=== PATIENT | male | born 1960 | race Caucasian/White ===

== ENCOUNTER 2016-05-01 17:51 | Inpatient (IN) | payer MEDICARE, MEDICAID ==
[~2016-05-01] VITALS: Ht 172.7 cm; Wt 91.2 kg
[~2016-05-01 17:51] MED LIST: ARIC5TAB PO; LEVO50TA51 PO; LISI-360 PO; METO25 PO; MIRTA15 PO; PERC5TAB12 PO; PRIM50TA PO; RISP2TAB2 PO; TRAZ300T2 PO; VENL150T14 PO
[2016-05-01 18:30] VITALS: BP 145/90; PULSE 82; RESP 18; TEMP 97.8; O2SAT 98; O2SAT 99
[2016-05-01] MEDS ORDERED: ACETAMINOPHEN 325 MG TAB PO ONE (19:15)
[2016-05-01] MEDS ORDERED: MECLIZINE HCL 25 MG TAB PO ONE (19:15)
[2016-05-01 19:29] LABS: AUTOMATED NEUTROPHIL # 10.9 TH/MM3 (1.8-7.7); BASOPHIL # 0.2 TH/MM3 (0-0.2); BASOPHIL % 1.3 % (0.0-2.0); EOSINOPHIL # 0.7 TH/MM3 (0-0.4); EOSINOPHIL % 4.3 % (0.0-4.0); HEMATOCRIT 47.7 % (39.0-51.0); HEMO FLAGS DIFF FINAL; LYMPH % 19.6 % (9.0-44.0); LYMPHOCYTE # 3.1 TH/MM3 (1.0-4.8); MEAN CELL VOLUME 86.3 FL (80.0-100.0); MEAN CORPUSCULAR HEMOGLOBIN 29.2 PG (27.0-34.0); MEAN CORPUSCULAR HGB CONC 33.8 % (32.0-36.0); MONO % 5.2 % (0.0-8.0); NEUT % 69.6 % (16.0-70.0); PLATELET COUNT 214 TH/MM3 (150-450); RED BLOOD COUNT 5.53 MIL/MM3 (4.50-5.90); RED CELL DISTRIBUTION WIDTH 13.8 % (11.6-17.2); WHITE BLOOD COUNT 15.6 TH/MM3 (4.0-11.0)
[2016-05-01 19:39] LABS: APTT (PATIENT) 29.9 SEC (24.3-30.1)
[2016-05-01 19:41] LABS: ANION GAP 8 MEQ/L (5-15); AST (GOT) 15 U/L (15-37); BICARBONATE 28.6 MEQ/L (21.0-32.0); BLOOD UREA NITROGEN 5 MG/DL (7-18); CHLORIDE 102 MEQ/L (98-107); GLOMERULAR FILTRATION RATE 58 ML/MIN (>89); POTASSIUM 3.3 MEQ/L (3.5-5.1); SODIUM (NA) 139 MEQ/L (136-145)
[2016-05-01 19:45] LABS: ALKALINE PHOSPHATASE 82 U/L (45-117); ALT (GPT) 23 U/L (12-78); TOTAL BILIRUBIN ADULT 0.5 MG/DL (0.2-1.0)
[2016-05-01 19:46] LABS: CREATINE KINASE 123 U/L (39-308)
[2016-05-01 19:58] LABS: CKMB 0.9 NG/ML (0.5-3.6)
--- NOTE | 2016-05-01 20:03 | RADRPT ---
EXAM DATE/TIME: 05/01/2016 19:43 [facility] COMPARISON: No previous studies available for comparison. INDICATIONS : Syncope and dizziness. RADIATION DOSE: 37.42 CTDIvol (mGy) MEDICAL HISTORY : Cerebrovascular disease. Hypertension. SURGICAL HISTORY : None. ENCOUNTER: Initial ACUITY: 1 day PAIN SCALE: 0/10 LOCATION: cranial TECHNIQUE: Multiple contiguous axial images were obtained of the head. Using automated exposure control and adj ustment of the mA and/or kV according to patient size, radiation dose was kept as low as reasonably a chievable to obtain optimal diagnostic quality images. FINDINGS: There is a 21 x 27 mm focus of increased density posteriorly which is in the region of the distal sag ittal sinus and the right transverse sinus, series 2 image 13. This could represent focal subarachnoi d or subdural blood in between the leaves or adjacent to the falx/tentorium. Thrombus within the sinu s could appear similar. A mass lesion is conceivable but considered less likely. In any event, no sig nificant mass effect or midline shift demonstrated. No other areas of hemorrhage or abnormal attenuat ion demonstrated. There is no evidence of an acute ischemic event. Skull is intact. There is mucoperiosteal thickening of the visualized paranasal sinuses. Mastoid air cells are clear. CONCLUSION: 1. Focal acute subarachnoid or subdural blood versus venous sinus thrombosis. Please see above. MRV w ithout contrast and MRI with and without contrast of the brain recommended. 2. Chronic-appearing sinus disease. Russel Lopez MD on May 01, 2016 at 19:58 Board Certified Radiologist. This report was verified electronically.
[2016-05-01 20:09] VITALS: BP 138/89; PULSE 79; RESP 18; O2SAT 97
[2016-05-01] MEDS ORDERED: LEVO50TA4 PO (20:12)
[2016-05-01] MEDS ORDERED: BUPR100T4 PO (20:12)
[2016-05-01] MEDS ORDERED: MIRT30TA PO (20:12)
[2016-05-01] MEDS ORDERED: TRAZ150T75 PO (20:12)
[2016-05-01] MEDS ORDERED: CLON1TAB PO (20:12)
--- NOTE | 2016-05-01 20:19 | PD ---
HPI Chief Complaint: Syncope/Near-Syncope Time Seen by Provider: 20:15 Travel History International Travel<30 days: No Contact w/Intl Traveler<30days: No Traveled to known affect area: No History of Present Illness HPI 56 year-old male with history of dementia and stroke about 30 years ago without deficits presents to the emergency room for evaluation of syncopal episode. Patient was at [facility] when he fell backwards and struck the back of his head. Witnesses report he looked as though he had gone blank and then collapsed. Upon awaking, patient was brought to the emergency room via ambulance. He reports significant headache localized to the occipital area. Patient reports some dizziness when he leans forward. Denies chest pain, shortness of breath, abdominal pain, extremity pain. Denies any other injuries. He does not take any blood thinners. Patient takes medication for hypothyroidism, depression, anxiety, and sleep. Patient's is with him and states at baseline he has dementia due to alcoholism and has short-term memory loss; this is evident by patient asking the same questions multiple times. He has not drank alcohol for 4 years. He has history of stroke when he was in his 30s but has no deficits from it. PFSH Past Medical History Arthritis: Yes Asthma: No Autoimmune Disease: No Anxiety: Yes Depression: Yes Heart Rhythm Problems: No Cancer: No Cardiac Catheterization: Yes (2008) Cardiovascular Problems: Yes High Cholesterol: No Chemotherapy: No Chest Pain: No Congestive Heart Failure: No COPD: Yes Cerebrovascular Accident: Yes (NO DEFICIT) Coronary Artery Disease: Yes Dementia: Yes (SHORT TERM) Diabetes: No Diminished Hearing: No Endocrine: No Gastrointestinal Disorders: No GERD: No Genitourinary: No Headaches: Yes Hepatitis: No Hiatal Hernia: No Immune Disorder: No Implanted Vascular Access Dvce: No Kidney Stones: No Medical other: Yes (ARTHRITIS, STROKE) Musculoskeletal: Yes Neurologic: Yes Psychiatric: Yes (DEPRESSION) Reproductive: No Respiratory: Yes Immunizations Current: Yes Migraines: No Radiation Therapy: No Renal Failure: No Seizures: No Sleep Apnea: No Thyroid Disease: Yes PNEUMOCCOCAL Vaccine (Year): 2 Past Surgical History Abdominal Surgery: Yes (ABDOMINAL HERNIA REPAIR) AICD: No Arteriovenous Shunt: No Ear Surgery: No Endocrine Surgery: No Eye Surgery: No Genitourinary Surgery: No Gynecologic Surgery: No Insulin Pump: No Joint Replacement: No Neurologic Surgery: No Oral Surgery: No Pacemaker: No Thoracic Surgery: No Other Surgery: Yes (CYST REMOVAL) Social History Alcohol Use: No (SOBER 4 YEARS) Tobacco Use: Yes (1 2 PPD) Substance Use: No Allergies-Medications (Allergen,Severity, Reaction): Coded Allergies: No Known Allergies (Verified , 05/01/16) Reported Meds & Prescriptions Reported Meds & Active Scripts Active Reported Trazodone (Trazodone HCl) 150 Mg Tab 150 Mg PO HS Mirtazapine 30 Mg Tab 30 Mg PO HS Clonazepam 1 Mg Tab 1 Mg PO TID Bupropion HCl 100 Mg Tab 100 Mg PO HS Levothyroxine (Levothyroxine Sodium) 50 Mcg Tab 50 Mcg PO DAILY Review of Systems Except as stated in HPI: all other systems reviewed are Neg Physical Exam Narrative GENERAL: Well-nourished, well-developed male in no acute distress. Afebrile. SKIN: Warm and dry. HEAD: Normocephalic. EYES: No scleral icterus. No injection or drainage. NECK: Supple, trachea midline. No JVD or lymphadenopathy. CARDIOVASCULAR: Regular rate and rhythm without murmurs, gallops, or rubs. RESPIRATORY: Breath sounds equal bilaterally. No accessory muscle use. NEUROLOGICAL: Awake and alert. Cranial nerves II through XII intact. Motor and sensory grossly within normal limits. Five out of 5 muscle strength in all muscle groups. Normal speech. No pronator drift in upper or lower extremities. Data Data Last Documented VS Vital Signs Date Time Temp Pulse Resp B/P Pulse Ox O2 Delivery O2 Flow Rate FiO2 05/01/16 20:09 79 18 138/89 97 Room Air 05/01/16 18:30 97.8 Orders Electrocardiogram (05/01/16 18:51) Complete Blood Count With Diff (05/01/16 18:51) Comprehensive Metabolic Panel (05/01/16 18:51) Iv Access Insert/Monitor (05/01/16 18:51) Troponin I (05/01/16 18:58) Ckmb (Isoenzyme) Profile (05/01/16 18:58) Act Partial Throm Time (Ptt) (05/01/16 18:58) Ct Brain W/O Iv Contrast(Rout) (05/01/16 19:10) Ecg Monitoring (05/01/16 19:10) Oximetry (05/01/16 19:10) Meclizine (Antivert) (05/01/16 19:15) Acetaminophen (Tylenol) (05/01/16 19:15) CKMB (05/01/16 18:58) CKMB% (05/01/16 18:58) Mri Brain W&W/O Contrast (05/01/16 ) Admit Order (Ed Use Only) (05/01/16 20:25) Mrv Brain W/Wo Contrast (05/01/16 ) Labs Laboratory Tests Test 05/01/16 18:58 White Blood Count 15.6 TH/MM3 Red Blood Count 5.53 MIL/MM3 Hemoglobin 16.2 GM/DL Hematocrit 47.7 % Mean Corpuscular Volume 86.3 FL Mean Corpuscular Hemoglobin 29.2 PG Mean Corpuscular Hemoglobin 33.8 % Concent Red Cell Distribution Width 13.8 % Platelet Count 214 TH/MM3 Mean Platelet Volume 8.5 FL Neutrophils (%) (Auto) 69.6 % Lymphocytes (%) (Auto) 19.6 % Monocytes (%) (Auto) 5.2 % Eosinophils (%) (Auto) 4.3 % Basophils (%) (Auto) 1.3 % Neutrophils # (Auto) 10.9 TH/MM3 Lymphocytes # (Auto) 3.1 TH/MM3 Monocytes # (Auto) 0.8 TH/MM3 Eosinophils # (Auto) 0.7 TH/MM3 Basophils # (Auto) 0.2 TH/MM3 CBC Comment DIFF FINAL Differential Comment Activated Partial 29.9 SEC Thromboplast Time Sodium Level 139 MEQ/L Potassium Level 3.3 MEQ/L Chloride Level 102 MEQ/L Carbon Dioxide Level 28.6 MEQ/L Anion Gap 8 MEQ/L Blood Urea Nitrogen 5 MG/DL Creatinine 1.27 MG/DL Estimat Glomerular Filtration 58 ML/MIN Rate Random Glucose 74 MG/DL Calcium Level 9.4 MG/DL Total Bilirubin 0.5 MG/DL Aspartate Amino Transf 15 U/L (AST/SGOT) Alanine Aminotransferase 23 U/L (ALT/SGPT) Alkaline Phosphatase 82 U/L Total Creatine Kinase 123 U/L Creatine Kinase MB 0.9 NG/ML Troponin I LESS THAN 0.02 NG/ML Total Protein 8.4 GM/DL Albumin 4.2 GM/DL MDM Medical Decision Making Medical Screen Exam Complete: Yes Emergency Medical Condition: Yes Medical Record Reviewed: Yes Differential Diagnosis Subarachnoid hemorrhage versus hematoma versus concussion versus syncope Narrative Course 56-year-old male presents to the emergency room for evaluation of sickle episode and headache that occurred just prior to arrival. [facility] striking the back of his head. Headache is localized to that area. Physical exam is reassuring. Vital signs stable. Patient has no focal neurological deficits. Answering questions appropriately. He has baseline dementia and often repeats questions. Denies any other complaints. CBC shows mild leukocytosis. CMP is unremarkable. Troponin is less than 0.02. EKG shows sinus rhythm with a rate of 76, no ST changes; signed off by my attending physician. CT brain reveals a 2.1 x 2.7 centimeter focal acute subarachnoid or subdural bleed. I spoke to the neurosurgeon length control tester , Dr. Bassett, who recommends placing patient in intensive care unit with consult to neurosurgery for bleed and neurology for syncope. Dr. Bassett states patient is likely nonsurgical. I spoke to Dr. New who agrees to accept this patient to his service. Physician Communication Physician Communication I spoke to Dr. Bassett who request MRI with and without contrast, MRV without contrast, consult to neurology for syncope, and admission to ICU. I spoke to Dr. New who agrees to accept patient to his service. Diagnosis Primary Impression: Subarachnoid hemorrhage following injury with loss of consciousness of 30 minutes or less Qualified Code: S06.6X1A - Subarachnoid hemorrhage following injury with loss of consciousness of 30 minutes or less, initial encounter Admitting Information Admitting Physician Requests: Admit Condition: Stable Mami Fisher May 01, 2016 20:19
[2016-05-01] MEDS ORDERED: ACETAMINOPHEN 325 MG TAB PO PRN (20:30)
[2016-05-01] MEDS ORDERED: SODIUM CHLORIDE 0.9% FLUSH 5 ML FLUSH IV FLUSH PRN (20:30)
[2016-05-01] MEDS ORDERED: RESP: ALBUTEROL 2.5 MG/IPRATROPIUM 0.5 MG NEB (PRN) INH (20:30)
[2016-05-01] MEDS ORDERED: MORPHINE SULFATE 4 MG/ML INJ IV PRN (20:30)
[2016-05-01] MEDS ORDERED: CHLORHEXIDINE GLUCONATE 2 % 1 PACK (2 CLOTHS) TOP PRN (20:30)
[2016-05-01] MEDS ORDERED: MISCELLANEOUS NURSING INFORMATION XX SCH (20:30)
--- NOTE | 2016-05-01 20:47 | HHI.HP ---
HPI Service Critical Care Medicine Primary Care Physician Unknown Admission Diagnosis subarachnoid hemorrhage Diagnosis: Travel History International Travel<30 Days: No Contact w/Intl Traveler <30 Da: No Traveled to Known Affected Are: No History of Present Illness 56 year-old male with mild dementia and stroke about 30 years ago without deficits presents to the emergency room for evaluation of syncopal episode. Patient was at [facility] when he fell backwards and struck the back of his head. Witnesses report he looked as though he had gone blank and then collapsed. He cannot recall the event. He reports significant headache localized to the occipital area. Patient admits some dizziness when he leans forward. He does not take any blood thinners. Patient takes medication for hypothyroidism, depression, anxiety, and sleep. Review of Systems Constitutional: DENIES: Diaphoretic episodes, Fatigue, Fever, Weight gain, Weight loss, Chills, Dizziness, Change in appetite, Night Sweats Endocrine: DENIES: Heat/cold intolerance, Polydipsia, Polyuria, Polyphagia Eyes: DENIES: Blurred vision, Diplopia, Eye inflammation, Eye pain, Vision loss , Photosensitivity, Double Vision Ears, nose, mouth, throat: DENIES: Tinnitus, Hearing loss, Vertigo, Nasal discharge, Oral lesions, Throat pain, Hoarseness, Ear Pain, Running Nose, Epistaxis, Sinus Pain, Toothache, Odynophagia Respiratory: DENIES: Apneas, Cough, Snoring, Wheezing, Hemoptysis, Sputum production, Shortness of breath Cardiovascular: DENIES: Chest pain, Palpitations, Syncope, Dyspnea on Exertion , PND, Lower Extremity Edema, Orthopnea, Claudication Gastrointestinal: DENIES: Abdominal pain, Black stools, Bloody stools, Constipation, Diarrhea, Nausea, Vomiting, Difficulty Swallowing, Anorexia Genitourinary: DENIES: Sexual dysfunction, Urinary frequency, Urinary incontinence, Urgency, Hematuria, Dysuria, Nocturia, Penile Discharge, Testicular Pain, Testicular Swelling Musculoskeletal: DENIES: Joint pain, Muscle aches, Stiffness, Joint Swelling, Back pain, Neck pain Integumentary: DENIES: Abnormal pigmentation, Nail changes, Pruritus, Rash Hematologic/lymphatic: DENIES: Bruising, Lymphadenopathy Immunologic/allergic: DENIES: Eczema, Urticaria Past Family Social History Allergies: Coded Allergies: No Known Allergies (Verified , 05/01/16) Past Medical History Arthritis Depression Cardiac Catheterization (2008) COPD Cerebrovascular Accident Coronary Artery Disease Dementia Past Surgical History ABDOMINAL HERNIA REPAIR CYST REMOVAL Reported Medications Trazodone (Trazodone HCl) 150 Mg Tab 150 Mg PO HS Mirtazapine 30 Mg Tab 30 Mg PO HS Clonazepam 1 Mg Tab 1 Mg PO TID Bupropion HCl 100 Mg Tab 100 Mg PO HS Levothyroxine (Levothyroxine Sodium) 50 Mcg Tab 50 Mcg PO DAILY Active Ordered Medications Current Medications Medications (Trade) Dose Ordered Sig/Jose Route PRN Reason Start Time Stop Time Status Last Admin Dose Admin Sodium Chloride (NS 1000 ml Inj) 1,000 ml @ 84 mls/hr [id number] IV 05/01/16 20:30 05/01/16 21:12 IV Flush (NS Flush) 2 ml UNSCH PRN IV FLUSH FLUSH AFTER USING IV ACCESS 05/01/16 20:30 IV Flush (NS Flush) 2 ml BID IV FLUSH 05/01/16 21:00 Acetaminophen (Tylenol) 650 mg Q6H PRN PO PAIN 1-10 AND/OR FEVER >101F 05/01/16 20:30 Acetaminophen/ Hydrocodone Bitart ([place] 5-325 Mg) 1 tab Q4H PRN PO PAIN SCALE 1 TO 5 05/01/16 20:30 Morphine Sulfate (Morphine Inj) 2 mg Q2H PRN IV PAIN SCALE 6 TO 10 05/01/16 20:30 Famotidine (Pepcid Inj) 20 mg Q12HR IV PUSH 05/01/16 21:00 05/01/16 21:13 Docusate Sodium (Colace) 100 mg BID PO 05/01/16 21:00 05/01/16 21:13 Miscellaneous Information 1 [id number] XX 05/01/16 20:30 Chlorhexidine Gluconate (Chlorhexidine 2% Cloth) 3 pack Taper DAILY@04 TOP 05/02/16 04:00 04/28/17 03:59 Chlorhexidine Gluconate (Chlorhexidine 2% Cloth) 3 pack UNSCH PRN TOP HYGIENIC CARE 05/01/16 20:30 Bupropion HCl (Wellbutrin) 100 mg HS PO 05/01/16 21:00 05/01/16 21:12 Clonazepam (KlonoPIN) 1 mg TID PO 05/02/16 09:00 Levothyroxine Sodium (Synthroid) 50 mcg DAILY@06 PO 05/02/16 06:00 Mirtazapine (Remeron) 30 mg HS PO 05/01/16 21:00 05/01/16 21:12 Trazodone HCl (Desyrel) 150 mg HS PO 05/01/16 21:00 05/01/16 21:12 Family History Noncontributory Social History Alcohol Use: No (SOBER 4 YEARS) Tobacco Use: Yes (1 1/2 PPD) Substance Use: No Physical Exam Vital Signs Vital Signs Date Time Temp Pulse Resp B/P Pulse Ox O2 Delivery O2 Flow Rate FiO2 05/01/16 20:09 79 18 138/89 97 Room Air 05/01/16 18:30 99 Room Air 05/01/16 18:30 82 18 99 Room Air 05/01/16 18:30 97.8 82 18 145/90 98 Physical Exam Last [address] 05/01/16 1910 Signed Impressions: Service Date/Time: April 19:43 - CONCLUSION: 1. Focal acute subarachnoid or subdural blood versus venous sinus thrombosis. Please see above. MRV without contrast and MRI with and without contrast of the brain recommended. 2. Chronic-appearing sinus disease. Russel Lopez MD Laboratory Laboratory Tests Test 05/01/16 18:58 White Blood Count 15.6 Red Blood Count 5.53 Hemoglobin 16.2 Hematocrit 47.7 Mean Corpuscular Volume 86.3 Mean Corpuscular Hemoglobin 29.2 Mean Corpuscular Hemoglobin 33.8 Concent Red Cell Distribution Width 13.8 Platelet Count 214 Mean Platelet Volume 8.5 Neutrophils (%) (Auto) 69.6 Lymphocytes (%) (Auto) 19.6 Monocytes (%) (Auto) 5.2 Eosinophils (%) (Auto) 4.3 Basophils (%) (Auto) 1.3 Neutrophils # (Auto) 10.9 Lymphocytes # (Auto) 3.1 Monocytes # (Auto) 0.8 Eosinophils # (Auto) 0.7 Basophils # (Auto) 0.2 CBC Comment DIFF FINAL Differential Comment Activated Partial 29.9 Thromboplast Time Sodium Level 139 Potassium Level 3.3 Chloride Level 102 Carbon Dioxide Level 28.6 Anion Gap 8 Blood Urea Nitrogen 5 Creatinine 1.27 Estimat Glomerular Filtration 58 Rate Random Glucose 74 Calcium Level 9.4 Total Bilirubin 0.5 Aspartate Amino Transf 15 (AST/SGOT) Alanine Aminotransferase 23 (ALT/SGPT) Alkaline Phosphatase 82 Total Creatine Kinase 123 Creatine Kinase MB 0.9 Troponin I LESS THAN 0.02 Total Protein 8.4 Albumin 4.2 Result Diagram: 05/01/16185705/01/161857 Imaging Last [address] 05/01/16 1910 Signed Impressions: Service Date/Time: April 19:43 - CONCLUSION: 1. Focal acute subarachnoid or subdural blood versus venous sinus thrombosis. Please see above. MRV without contrast and MRI with and without contrast of the brain recommended. 2. Chronic-appearing sinus disease. Russel Lopez MD Septic Shock Reassessment Heart: Regular rate and rhythm Lungs: Clear Peripheral Pulses: Bounding Right Radial Bounding Left Radial Assessment and Plan Problem List: (1) Hypertension ICD Code: I10 Status: Acute (2) COPD (chronic obstructive pulmonary disease) ICD Code: J44.9 Status: Acute (3) Intracranial bleeding ICD Code: I62.9 Status: Acute (4) Depression ICD Code: F32.9 Status: Acute (5) Hypothyroid ICD Code: E03.9 Status: Acute Assessment and Plan Intracranial Hemorrhage - admit to ICU - neurochecks Q1H - MRI/MRV to r/o aneurysm, venous sinus thrombosis - no NSGY indicated ' - no seizure prophylaxis indicated per location - Neurology evaluation HTN - goal SBT < 150 - Hydralazine PRN Hypothyroid - Levothyroxine Depression - Mirtazapine - Welbutrine - Trazodone Nutrition - NPO until images completed DVT/GI prophylaxis - TEDs/SCDs/ Pepcid Roger New MD May 01, 2016 20:47
[2016-05-01] MEDS: SODIUM CHLORIDE 0.9% FLUSH 5 ML FLUSH IV FLUSH SCH (21:00)
[2016-05-01] MEDS: SODIUM CHLOR 0.9% 1000 ML INJ 1,000 ML IV SCH (21:12)
[2016-05-01] MEDS: MIRTAZAPINE 15 MG TAB PO SCH (21:12)
[2016-05-01] MEDS: buPROPion HCL 100 MG TAB PO SCH (21:12)
[2016-05-01] MEDS: traZODone HCL 50 MG TAB PO SCH (21:12)
[2016-05-01] MEDS: DOCUSATE SODIUM 100 MG CAP PO SCH (21:13)
[2016-05-01] MEDS: FAMOTIDINE 20 MG/2 ML VIAL IV PUSH SCH (21:13)
[2016-05-01] MEDS ORDERED: GADODIAMIDE PF 287 MG/ML 20 ML VIAL (for RAD MRI) IV ONE (22:24)
--- NOTE | 2016-05-01 22:43 | RADRPT ---
EXAM DATE/TIME: 05/01/2016 21:28 [facility] COMPARISON: MRV BRAIN W/WO CONTRAST, May 01, 2016, 21:28. CT BRAIN W/O CONTRAST, May 01, 2016, 19:43. INDICATIONS : Syncope. SDH. CONTRAST: 20 cc Omniscan (gadodiamide) IV MEDICAL HISTORY : Dementia. Hypothyroidism. SURGICAL HISTORY : Inguinal hernia repair. ENCOUNTER: Initial ACUITY: 1 day PAIN SCORE: 3/10 LOCATION: head TECHNIQUE: Multiplanar, multisequence MRI of the brain was performed both prior to and following the administrat ion of paramagnetic contrast. FINDINGS: CEREBRUM: The ventricles are normal for age. No evidence of midline shift, mass lesion, hemorrhage or acute in farction. No extraaxial fluid collections are seen. The pituitary gland and suprasellar cistern are normal in configuration. WHITE MATTER: Numerous subcentimeter scattered foci of flair signal abnormality seen of the mainly subcortical whit e matter of both cerebral hemispheres. POSTERIOR FOSSA: The cerebellum and brainstem are intact. The 4th ventricle is midline. The cerebellopontine angle is unremarkable. The cerebellar tonsils are normal in position. DIFFUSION IMAGING: No focal areas of restricted diffusion are seen. No evidence of acute infarction. EXTRACRANIAL: The visualized portions of the orbits and paranasal sinuses are unremarkable. POST-CONTRAST: No abnormal areas of parenchymal or dural enhancement. No evidence of blood-brain barrier breakdown. CONCLUSION: 1. No acute intracranial abnormality demonstrated. 2. Chronic, moderate severity and primarily subcortical white matter changes, nonspecific. Russel Lopez MD on May 01, 2016 at 22:40 Board Certified Radiologist. This report was verified electronically.
--- NOTE | 2016-05-01 22:46 | RADRPT ---
EXAM DATE/TIME: 05/01/2016 21:28 COMPARISON: MRI BRAIN W & W/O CONTRAST, May 01, 2016, 21:28. CT BRAIN W/O CONTRAST, May 01, 2016, 19:43 . INDICATIONS : Bleed. CONTRAST: 20 cc Omniscan (gadodiamide) IV MEDICAL HISTORY : Dementia. SURGICAL HISTORY : Inguinal hernia repair. ENCOUNTER: Initial ACUITY: 1 day PAIN SCORE: 3/10 LOCATION: head FINDINGS: Dural sinuses are patent. The right transverse sinus is dominant. There is a very prominent caliber c onfluence of the sagittal sinus and right transverse sinus that accounts for the finding on head CT. CONCLUSION: No venous sinus thrombosis or other acute abnormality. The confluence of the sagittal and right trans verse sinuses is developmentally prominent. Russel Lopez MD on May 01, 2016 at 22:42 Board Certified Radiologist. This report was verified electronically.
[2016-05-01 23:16] VITALS: BP 124/79; PULSE 92; RESP 18; O2SAT 95
[2016-05-02] VITALS (11 sets, daily range): BP systolic 96–141; BP diastolic 51–91; PULSE 62–85; RESP 16–21; TEMP 98.2–98.5; O2SAT 93–95
[2016-05-02] MEDS: CHLORHEXIDINE GLUCONATE 2 % 1 PACK (2 CLOTHS) TOP SCH (04:00)
[2016-05-02 04:06] LABS: AUTOMATED NEUTROPHIL # 5.2 TH/MM3 (1.8-7.7); BASOPHIL # 0.1 TH/MM3 (0-0.2); BASOPHIL % 1.3 % (0.0-2.0); EOSINOPHIL # 0.4 TH/MM3 (0-0.4); EOSINOPHIL % 4.6 % (0.0-4.0); HEMATOCRIT 44.1 % (39.0-51.0); HEMO FLAGS DIFF FINAL; LYMPH % 32.4 % (9.0-44.0); MEAN CELL VOLUME 85.5 FL (80.0-100.0); MEAN CORPUSCULAR HEMOGLOBIN 29.5 PG (27.0-34.0); MEAN CORPUSCULAR HGB CONC 34.5 % (32.0-36.0); MONO % 6.4 % (0.0-8.0); NEUT % 55.3 % (16.0-70.0); PLATELET COUNT 160 TH/MM3 (150-450); RED BLOOD COUNT 5.16 MIL/MM3 (4.50-5.90); RED CELL DISTRIBUTION WIDTH 13.7 % (11.6-17.2); WHITE BLOOD COUNT 9.3 TH/MM3 (4.0-11.0)
[2016-05-02 04:37] LABS: ALKALINE PHOSPHATASE 69 U/L (45-117); ALT (GPT) 19 U/L (12-78); ANION GAP 8 MEQ/L (5-15); AST (GOT) 14 U/L (15-37); BICARBONATE 26.7 MEQ/L (21.0-32.0); BLOOD UREA NITROGEN 6 MG/DL (7-18); CHLORIDE 107 MEQ/L (98-107); GLOMERULAR FILTRATION RATE 69 ML/MIN (>89); MAGNESIUM 1.6 MG/DL (1.5-2.5); POTASSIUM 3.5 MEQ/L (3.5-5.1); SODIUM (NA) 142 MEQ/L (136-145); TOTAL BILIRUBIN ADULT 0.7 MG/DL (0.2-1.0)
[2016-05-02] MEDS: LEVOTHYROXINE SODIUM 50 MCG TAB PO SCH (06:00)
[2016-05-02] MEDS: SODIUM CHLOR 0.9% 1000 ML INJ 1,000 ML IV SCH ×2 (08:25→20:20)
[2016-05-02] MEDS: clonazePAM 1 MG TAB PO SCH ×3 (08:29→17:28)
[2016-05-02] MEDS: FAMOTIDINE 20 MG/2 ML VIAL IV PUSH SCH ×2 (08:29→20:26)
[2016-05-02] MEDS: DOCUSATE SODIUM 100 MG CAP PO SCH ×2 (08:29→20:26)
[2016-05-02] MEDS: SODIUM CHLORIDE 0.9% FLUSH 5 ML FLUSH IV FLUSH SCH ×2 (08:30→21:00)
--- NOTE | 2016-05-02 08:45 | PD.CONS ---
History of Present Illness Service Neurology Consult Requested By nsx Reason for Consult ich Primary Care Physician Unknown History of Present Illness 56 year-old male with mild dementia and stroke about 30 years ago without deficits presents to the emergency room for evaluation of syncopal episode. Patient was at [facility] when he fell backwards and struck the back of his head. Witnesses report he looked as though he had gone blank and then collapsed. He cannot recall the event. He reports significant headache localized to the occipital area. Patient admits some dizziness when he leans forward. not on any blood thinners. bp 145/90. c/o mild posterior headache. ct brain brain showed possible sah/venous thrombosis not verified by mri/mrv brain. he is not sure what happened. he states he has "dementia" and his takes care of him. he is on disability. on multiple psychotropic medications. Review of Systems as above and admit hp Past Family Social History Allergies: Coded Allergies: No Known Allergies (Verified , 05/01/16) Past Medical History Arthritis Depression Cardiac Catheterization (2008) COPD Cerebrovascular Accident Coronary Artery Disease Dementia Past Surgical History ABDOMINAL HERNIA REPAIR CYST REMOVAL Reported Medications Trazodone (Trazodone HCl) 150 Mg Tab 150 Mg PO HS Mirtazapine 30 Mg Tab 30 Mg PO HS Clonazepam 1 Mg Tab 1 Mg PO TID Bupropion HCl 100 Mg Tab 100 Mg PO HS Levothyroxine (Levothyroxine Sodium) 50 Mcg Tab 50 Mcg PO DAILY Family History Noncontributory Social History Alcohol Use: No (SOBER 4 YEARS) Tobacco Use: Yes (1 2 PPD) Substance Use: No Review of Systems All other ROS: ROS reviewed as documented in chart Past Family Social History Allergies: Coded Allergies: No Known Allergies (Verified , 05/01/16) Active Ordered Medications Current Medications Medications (Trade) Dose Ordered Sig/Jose Route Start Time Stop Time Status Last Admin (NS 1000 ml Inj) 1,000 ml @ 84 mls/hr [id number] IV 05/01/16 20:30 05/02/16 08:25 (NS Flush) 2 ml UNSCH PRN IV FLUSH 05/01/16 20:30 (NS Flush) 2 ml BID IV FLUSH 05/01/16 21:00 05/02/16 08:30 (Tylenol) 650 mg Q6H PRN PO 05/01/16 20:30 05/02/16 08:30 ([place] 5-325 Mg) 1 tab Q4H PRN PO 05/01/16 20:30 (Morphine Inj) 2 mg Q2H PRN IV 05/01/16 20:30 (Pepcid Inj) 20 mg Q12HR IV PUSH 05/01/16 21:00 05/02/16 08:29 (Colace) 100 mg BID PO 05/01/16 21:00 05/02/16 08:29 Miscellaneous Information 1 Q361D XX 05/01/16 20:30 05/01/16 20:30 (Chlorhexidine 2% Cloth) 3 pack Taper DAILY@04 TOP 05/02/16 04:00 04/28/17 03:59 (Chlorhexidine 2% Cloth) 3 pack UNSCH PRN TOP 05/01/16 20:30 (Wellbutrin) 100 mg HS PO 05/01/16 21:00 05/01/16 21:12 (KlonoPIN) 1 mg TID PO 05/02/16 09:00 05/02/16 08:29 (Synthroid) 50 mcg DAILY@06 PO 05/02/16 06:00 05/02/16 06:00 (Remeron) 30 mg HS PO 05/01/16 21:00 05/01/16 21:12 (Desyrel) 150 mg HS PO 05/01/16 21:00 05/01/16 21:12 (Pneumovax-23 Inj) 25 mcg ONCE ONCE IM 05/02/16 09:00 05/02/16 09:01 Exam I&O / VS 05/01/16 05/01/16 05/02/16 15:00 23:00 07:00 Intake Total 616 ml Output Total 400 ml Balance 216 ml Intake IV Total 616 ml Output Urine Total 400 ml Vital Signs Date Time Temp Pulse Resp B/P Pulse Ox O2 Delivery O2 Flow Rate FiO2 05/02/16 06:00 70 05/02/16 04:00 62 05/02/16 04:00 98.2 62 18 107/58 93 05/02/16 01:00 98.5 64 21 96/51 93 05/02/16 01:00 64 05/01/16 23:16 92 18 124/79 95 Room Air 05/01/16 20:09 79 18 138/89 97 Room Air 05/01/16 18:30 99 Room Air 05/01/16 18:30 82 18 99 Room Air 05/01/16 18:30 97.8 82 18 145/90 98 General: No acute distress Eye: EOMI Respiratory: Non-labored respirations Cardiology: No murmur Neurologic: Alert, Normal sensory, Normal motor, No focal defects, CN II-XII intact Psychiatric: Cooperative, Appropriate mood & affect Exam Comments ox 2. not to exact year. knows he is at [facility]. pres- "i think Navin is coming in" . folows, able to name objects, poor knowledge of medications/medical hx, calm, pleasant, follows, eomi, ou 3-2mm, face sym, no focal weakness, mild tenderness in high occipital region, no lesion/blood seen, planter flexor Review/Management Diagnosis/Plan: (1) Syncope Plan: mri brain images reviewed- no acute stroke. no ich or venous thrombosis seen posterior chu appears to be superficial and probably related 2/2 head hitting floor recs syncope w/u orthostatics eeg/echo/mra brain tele on multiple psychotropic meds that could cause hypotension- may need to be reduced/removed ok for 5th floor [facility] with tele no driving (2) Depression (3) Dementia (4) Hypertension (5) Hypothyroid Problem Qualifiers (1) Syncope: (2) Depression: (3) Dementia: (4) Hypertension: Qualified Code: I10 - Essential hypertension (5) Hypothyroid: Qualified Code: E03.9 - Acquired hypothyroidism Vikram He MD May 02, 2016 08:45
[2016-05-02] MEDS ORDERED: PNEUMOCOCCAL POLYVALENT INJ 25 MCG/0.5 ML SYR IM ONE (09:00)
--- NOTE | 2016-05-02 09:03 | PD.CONS ---
(John Bassett MD) HPI Consult Requested By Primary Care Physician Unknown (John Bassett MD) Service NRS Consult Requested By Dr. Nowak Reason for Consult Intracranial hemorrhage History of Present Illness Mr. Carlson is a 56-year-old male who presented to [place] ED for a syncope. He reports he fell backwards and hit the back of his head. He denies any seizure like activities, tongue biting, urinary or fecal incontinence. A CT of the head showed an acute subarachnoid bleed at the falx. Mr. Carlson reports of some posterior headaches. He denies nausea, vomiting, focal weakness, paresthesias, vision changes. He denies any history of aneurysms. Neurosurgical evaluation was requested. (Rosita Cortés) Review of Systems Constitutional: DENIES: Fever, Chills Eyes: DENIES: Diplopia, Vision loss Ears, nose, mouth, throat: DENIES: Vertigo Respiratory: DENIES: Cough, Hemoptysis Gastrointestinal: DENIES: Nausea, Vomiting Genitourinary: DENIES: Urinary incontinence Musculoskeletal: DENIES: Back pain, Neck pain Neurologic: COMPLAINS OF: Headache, DENIES: Paresthesias Psychiatric: DENIES: Confusion, Hallucinations (Rosita Cortés) Past Family Social History Allergies: Coded Allergies: No Known Allergies (Verified , 05/01/16) Past Medical History COPD CAD Arthritis CVA Depression Past Surgical History Abdominal hernia repair cardiac catherization Reported Medications Trazodone (Trazodone HCl) 150 Mg Tab 150 Mg PO HS Mirtazapine 30 Mg Tab 30 Mg PO HS Clonazepam 1 Mg Tab 1 Mg PO TID Bupropion HCl 100 Mg Tab 100 Mg PO HS Levothyroxine (Levothyroxine Sodium) 50 Mcg Tab 50 Mcg PO DAILY Active Ordered Medications Current Medications Medications (Trade) Dose Ordered Sig/Jose Route PRN Reason Start Time Stop Time Status Last Admin Dose Admin Sodium Chloride (NS 1000 ml Inj) 1,000 ml @ 84 mls/hr [id number] IV 05/01/16 20:30 05/02/16 08:25 IV Flush (NS Flush) 2 ml UNSCH PRN IV FLUSH FLUSH AFTER USING IV ACCESS 05/01/16 20:30 IV Flush (NS Flush) 2 ml BID IV FLUSH 05/01/16 21:00 05/02/16 08:30 Acetaminophen (Tylenol) 650 mg Q6H PRN PO PAIN 1-10 AND/OR FEVER >101F 05/01/16 20:30 05/02/16 08:30 Acetaminophen/ Hydrocodone Bitart ([place] 5-325 Mg) 1 tab Q4H PRN PO PAIN SCALE 1 TO 5 05/01/16 20:30 05/02/16 10:19 Morphine Sulfate (Morphine Inj) 2 mg Q2H PRN IV PAIN SCALE 6 TO 10 05/01/16 20:30 Famotidine (Pepcid Inj) 20 mg Q12HR IV PUSH 05/01/16 21:00 05/02/16 08:29 Docusate Sodium (Colace) 100 mg BID PO 05/01/16 21:00 05/02/16 08:29 Miscellaneous Information 1 Q361D XX 05/01/16 20:30 05/01/16 20:30 Chlorhexidine Gluconate (Chlorhexidine 2% Cloth) 3 pack Taper DAILY@04 TOP 05/02/16 04:00 04/28/17 03:59 Chlorhexidine Gluconate (Chlorhexidine 2% Cloth) 3 pack UNSCH PRN TOP HYGIENIC CARE 05/01/16 20:30 Bupropion HCl (Wellbutrin) 100 mg HS PO 05/01/16 21:00 05/01/16 21:12 Clonazepam (KlonoPIN) 1 mg TID PO 05/02/16 09:00 05/02/16 12:31 Levothyroxine Sodium (Synthroid) 50 mcg DAILY@06 PO 05/02/16 06:00 05/02/16 06:00 Mirtazapine (Remeron) 30 mg HS PO 05/01/16 21:00 05/01/16 21:12 Trazodone HCl (Desyrel) 150 mg HS PO 05/01/16 21:00 05/01/16 21:12 Nicotine (Habitrol 21 Mg Patch.24 Hr) 1 patch DAILY TD 05/02/16 12:30 05/02/16 12:32 Miscellaneous Information 1 HS TD 05/02/16 21:00 Family History NONCONTRIBUTORY Social History TOBACCO 1/2 PPD, PREVIOUS ETOH USE NONE CURRENTLY, NO ILLICIT DRUG USE (Rosita Cortés) Physical Exam Vital Signs Vital Signs Date Time Temp Pulse Resp B/P Pulse Ox O2 Delivery O2 Flow Rate FiO2 05/02/16 06:00 70 05/02/16 04:00 62 05/02/16 04:00 98.2 62 18 107/58 93 05/02/16 01:00 98.5 64 21 96/51 93 05/02/16 01:00 64 05/01/16 23:16 92 18 124/79 95 Room Air 05/01/16 20:09 79 18 138/89 97 Room Air 05/01/16 18:30 99 Room Air 05/01/16 18:30 82 18 99 Room Air 05/01/16 18:30 97.8 82 18 145/90 98 Physical Exam Mr. Carlson is alert, awake and oriented to time, place and person. Speech is fluent. Cranial nerve examination demonstrates the pupils to be equal, round, and reactive to light. Extra-ocular movements are intact. Facial motor and sensory function are normal and symmetrical. Gross hearing is intact, bilaterally. The uvula is midline and elevates symmetrically with the soft palate. Neck is soft and supple. Muscle strength is 5/5 in all muscle groups of both upper extremities including deltoid, biceps, triceps, brachioradialis and repack room worker. In the lower extremities, strength is 5/5 in both iliopsoas, quadriceps, hamstrings, plantar flexion, dorsiflexion, and extensor hallicus longus. Sensory examination is intact to light touch in both the upper and lower extremities, symmetrically. Deep tendon reflexes are 2+ and symmetrical in the biceps, triceps, and brachioradialis, bilaterally, in the upper extremities. In the lower extremities, the patellar and Achilles are 2+, bilaterally. There is a bilateral plantar flexion response. Hoffmanns sign is negative. Cerebellar examination is intact Laboratory Laboratory Tests Test 05/01/16 05/01/16 05/02/16 18:58 23:45 03:27 White Blood Count 15.6 9.3 Red Blood Count 5.53 5.16 Hemoglobin 16.2 15.2 Hematocrit 47.7 44.1 Mean Corpuscular Volume 86.3 85.5 Mean Corpuscular Hemoglobin 29.2 29.5 Mean Corpuscular Hemoglobin 33.8 34.5 Concent Red Cell Distribution Width 13.8 13.7 Platelet Count 214 160 Mean Platelet Volume 8.5 8.2 Neutrophils (%) (Auto) 69.6 55.3 Lymphocytes (%) (Auto) 19.6 32.4 Monocytes (%) (Auto) 5.2 6.4 Eosinophils (%) (Auto) 4.3 4.6 Basophils (%) (Auto) 1.3 1.3 Neutrophils # (Auto) 10.9 5.2 Lymphocytes # (Auto) 3.1 3.0 Monocytes # (Auto) 0.8 0.6 Eosinophils # (Auto) 0.7 0.4 Basophils # (Auto) 0.2 0.1 CBC Comment DIFF FINAL DIFF FINAL Differential Comment Activated Partial 29.9 Thromboplast Time Sodium Level 139 142 Potassium Level 3.3 3.5 Chloride Level 102 107 Carbon Dioxide Level 28.6 26.7 Anion Gap 8 8 Blood Urea Nitrogen 5 6 Creatinine 1.27 1.10 Estimat Glomerular Filtration 58 69 Rate Random Glucose 74 93 Calcium Level 9.4 8.2 Total Bilirubin 0.5 0.7 Aspartate Amino Transf 15 14 (AST/SGOT) Alanine Aminotransferase 23 19 (ALT/SGPT) Alkaline Phosphatase 82 69 Total Creatine Kinase 123 Creatine Kinase MB 0.9 Troponin I LESS THAN 0.02 Total Protein 8.4 7.0 Albumin 4.2 3.3 Nasal Screen MRSA (PCR) NEGATIVE Phosphorus Level 3.9 Magnesium Level 1.6 (John Bassett MD) Physical Exam Mr. Carlson is alert, awake and oriented to time, place and person. Speech is fluent. Follows commands well. Cranial nerve examination demonstrates the pupils to be equal, round, and reactive to light. Extra-ocular movements are intact. Facial motor and sensory function are normal and symmetrical. Gross hearing is intact, bilaterally. The uvula is midline and elevates symmetrically with the soft palate. Neck is soft and supple. Muscle strength is 5/5 in all muscle groups of both upper extremities including deltoid, biceps, triceps, brachioradialis and repack room worker. In the lower extremities, strength is 5/5 in both iliopsoas, quadriceps, hamstrings, plantar flexion, dorsiflexion, and extensor hallicus longus. Sensory examination is intact to light touch in both the upper and lower extremities, symmetrically. Deep tendon reflexes are 2+ and symmetrical in the biceps, triceps, and brachioradialis, bilaterally, in the upper extremities. In the lower extremities, the patellar and Achilles are 2+, bilaterally. There is a bilateral plantar flexion response. Hoffmanns sign is negative. Cerebellar examination is intact to [id number] test. (Rosita Cortés) Result Diagram: 05/02/16 0327 05/02/16 0327 Imaging Last Impressions Head Magnetic Resonance Angiography 05/02/16 0000 Signed Impressions: Service Date/Time: Monday, May 02, 2016 11:47 - CONCLUSION: Normal MRA. No evidence of stenotic or occlusive disease, aneurysm, vascular malformations or vasculopathy. Juanpablo Brooks MD Head CT 05/01/16 1910 Signed Impressions: Service Date/Time: April 19:43 - CONCLUSION: 1. Focal acute subarachnoid or subdural blood versus venous sinus thrombosis. Please see above. MRV without contrast and MRI with and without contrast of the brain recommended. 2. Chronic-appearing sinus disease. Russel Lopez MD Head/Brain Mag Res Venography 05/01/16 0000 Signed Impressions: Service Date/Time: April 21:28 - CONCLUSION: No venous sinus thrombosis or other acute abnormality. The confluence of the sagittal and right transverse sinuses is developmentally prominent. Russel Lopez MD Brain MRI 05/01/16 0000 Signed Impressions: Service Date/Time: April 21:28 - CONCLUSION: 1. No acute intracranial abnormality demonstrated. 2. Chronic, moderate severity and primarily subcortical white matter changes, nonspecific. Russel Lopez MD (John Bassett MD) Attending Statement Neuro. I have reviewed his clinical and radiological findings. Neuro checks in serial fashion. recommend MRI and MRV brain to rule out vascular disease or thrombosis Syncope. Consult neurology. EEG. carotid duplex, echocardiogram. Holter orthostatic bl;ood pressure assessment Psych. he is on multiple psychotropic medications that could cause hypotension Respiratory. pulmonary toilette, nasotracheal suction, and breathing treatments with nebulizers. PT evaluation Tobbacco. Counseled Nutrition. Oral diet Renal. monitor closely urine output, BUN and creatinine Hypoglucemia. Corrected. Monitor serial Acu checks and SSI as needed in detail ID monitor for signs of infection Protonix for stress ulcer prophylaxis Vahe hose and SCD's for DVT prophylaxis (John Bassett MD) John Bassett MD May 02, 2016 09:03 Rosita Cortés May 02, 2016 15:49
[2016-05-02] MEDS: ACETAMINOPHEN/HYDROcodone 325 MG/5 MG TAB PO PRN ×2 (10:19→20:26)
--- NOTE | 2016-05-02 10:29 | HHI.CCPN ---
Subjective Remarks/Hospital Course 6 year-old male with mild dementia and stroke about 30 years ago without deficits presents to the emergency room for evaluation of syncopal episode. Patient was at [facility] when he fell backwards and struck the back of his head. Witnesses report he looked as though he had gone blank and then collapsed. He cannot recall the event. He reports significant headache localized to the occipital area. Patient admits some dizziness when he leans forward. He does not take any blood thinners. Patient takes medication for hypothyroidism, depression, anxiety, and sleep. 05/02: Remains asymptomatic. For CTA head today. Objective Vital Signs Date Time Temp Pulse Resp B/P Pulse Ox O2 Delivery O2 Flow Rate FiO2 05/02/16 10:00 75 05/02/16 08:00 98.3 17 124/81 93 05/01/16 23:16 Room Air Result Diagram: 05/02/16 0327 05/02/16 0327 Imaging Last [address] 05/01/16 1910 Signed Impressions: Service Date/Time: April 19:43 - CONCLUSION: 1. Focal acute subarachnoid or subdural blood versus venous sinus thrombosis. Please see above. MRV without contrast and MRI with and without contrast of the brain recommended. 2. Chronic-appearing sinus disease. Russel Lopez MD Objective Remarks Last 24 hours Impressions PE: Gen: Alert, cooperative. Head: Minor contusion mid occiput. Neck: Supple, airway widely patent. Lungs: Clear, no wheezes or crackles. Heart: NL S1S2, no JVD. RRR> Abdomen: Soft, benign. Extremities: Warm, well perfused. Neuro: O X 23, M/S grossly normal. A/P Problem List: (1) Hypertension ICD Code: I10 Status: Acute (2) COPD (chronic obstructive pulmonary disease) ICD Code: J44.9 Status: Acute (3) Intracranial bleeding ICD Code: I62.9 Status: Acute (4) Depression ICD Code: F32.9 Status: Acute (5) Hypothyroid ICD Code: E03.9 Status: Acute Assessment and Plan Intracranial Hemorrhage, psot-trauamtic - - neurochecks Q1H - MRI/MRV to r/o aneurysm, venous sinus thrombosis - no seizure prophylaxis indicated per location - Neurology evaluation underway HTN - goal SBT < 150 - Hydralazine PRN Hypothyroid - Levothyroxine Depression - Mirtazapine - Welbutrine - Trazodone Nutrition - NPO until images completed. Reg diet now. DVT/GI prophylaxis - TEDs/SCDs/ Pepcid. Hold chemical DVT px Overall impression: Problem Qualifiers (1) Hypertension: Qualified Code: I10 - Essential hypertension (2) Depression: (3) Hypothyroid: Qualified Code: E03.9 - Acquired hypothyroidism Hamzah Ruiz MD May 02, 2016 10:29
[2016-05-02] MEDS: NICOTINE 21 MG/24 HR PATCH TD SCH (12:32)
--- NOTE | 2016-05-02 12:45 | RADRPT ---
EXAM DATE/TIME: 05/02/2016 11:47 [facility] COMPARISON: MRV BRAIN W/WO CONTRAST, May 01, 2016, 21:28. MRI BRAIN W & W/O CONTRAST, May 01, 2016, 21: 28. INDICATIONS : Stroke. MEDICAL HISTORY : Hypothyroidism. Cerebrovascular disease. Hypertension. Dementia. SURGICAL HISTORY : Inguinal hernia repair. ENCOUNTER: Subsequent ACUITY: 2 day PAIN SCORE: 0/10 LOCATION: cranial Please note a normal MRA of the brain does not entirely exclude the possibility of a small aneurysm, nor the possibility of distal intracranial vessel disease. TECHNIQUE: 3D time of flight MRA was performed. Source images, multiplanar STS MIP, and 3D volume MIP reconstru ctions were reviewed. FINDINGS: There is excellent visualization of the major intracranial arteries out to the second-order branch ve ssels. There is no evidence for aneurysm, vessel truncation or stenosis, and no evidence for vascula r malformation. CONCLUSION: Normal MRA. No evidence of stenotic or occlusive disease, aneurysm, vascular malformations or vasculopathy. Juanpablo Brooks MD on May 02, 2016 at 12:40 Board Certified Radiologist. This report was verified electronically.
[2016-05-02 16:01] LABS: HEMOGLOBIN A1a 0.5 %; HEMOGLOBIN A1b 1.7 %; HEMOGLOBIN LA1C 1.8 %; HEMOGLOBIN P3 3.5 %
--- NOTE | 2016-05-02 16:56 | MG ---
cc: CHRISTOPHER PATEL MD Lab No: [id number] Date: 05/02/2016 Age: 56 Sex: M Race: DATE OF : 1960. HISTORY: 56-year-old with dizzy syncopal episode and pain in the back of his head. DESCRIPTION OF RECORD: Posterior rhythm demonstrates 7 to 9 Hz activity, 20-40 microvolts low amplitude beta in the frontal channels. Good anterior to posterior gradient. Reasonable driving with photic stimulation. Good EEG variability reactivity. Single lead EKG showing sinus rhythm. INTERPRETATION: Normal EEG. Clinical correlation. Christopher Patel MD /ARA /4:41 PM /4:53 PM
[2016-05-02] MEDS: buPROPion HCL 100 MG TAB PO SCH (20:26)
[2016-05-02] MEDS: MIRTAZAPINE 15 MG TAB PO SCH (20:26)
[2016-05-02] MEDS: traZODone HCL 50 MG TAB PO SCH (20:26)
[2016-05-02] MEDS ORDERED: REMOVE OLD NICODERM (NICOTINE) PATCH TD SCH (21:00)
--- NOTE | 2016-05-02 22:49 | EKG ---
Date Performed: 05/01/2016 Time Performed: 18:53:26 PTAGE: 56 years EKG: Sinus rhythm BORDERLINE ECG PREVIOUS TRACING : 07/14/2013 15.28 DOCTOR: Tobias Wright Interpretating Date/Time 05/02/2016 22:45:29
[2016-05-03] VITALS: BP 112/75; PULSE 62; PULSE 69; RESP 16; TEMP 97.9; O2SAT 94
[2016-05-03 02:00] VITALS: PULSE 65
[2016-05-03] MEDS: CHLORHEXIDINE GLUCONATE 2 % 1 PACK (2 CLOTHS) TOP SCH (03:40)
[2016-05-03 04:00] VITALS: BP 115/75; PULSE 68; PULSE 71; RESP 21; TEMP 98.9; O2SAT 93
[2016-05-03] MEDS: LEVOTHYROXINE SODIUM 50 MCG TAB PO SCH (05:18)
[2016-05-03] MEDS: ACETAMINOPHEN/HYDROcodone 325 MG/5 MG TAB PO PRN (05:21)
[2016-05-03 06:00] VITALS: PULSE 71
[2016-05-03 08:00] VITALS: BP 130/80; PULSE 56; RESP 16; TEMP 98.5; O2SAT 97
[2016-05-03] MEDS: SODIUM CHLOR 0.9% 1000 ML INJ 1,000 ML IV SCH (08:15)
[2016-05-03] MEDS: DOCUSATE SODIUM 100 MG CAP PO SCH (08:54)
[2016-05-03] MEDS: FAMOTIDINE 20 MG/2 ML VIAL IV PUSH SCH (08:54)
[2016-05-03] MEDS: SODIUM CHLORIDE 0.9% FLUSH 5 ML FLUSH IV FLUSH SCH (08:54)
[2016-05-03] MEDS: NICOTINE 21 MG/24 HR PATCH TD SCH (08:54)
[2016-05-03] MEDS: clonazePAM 1 MG TAB PO SCH (08:54)
--- NOTE | 2016-05-03 08:58 | HHI.DS ---
Discharge Summary Admission Date May 01, 2016 at 20:27 Admitting Diagnosis subarachnoid hemorrhage Procedures MRA - normal. CT Head - Small post SDH Brief History 56 year-old male with mild dementia and stroke about 30 years ago without deficits presents to the emergency room for evaluation of syncopal episode. Patient was at [facility] when he fell backwards and struck the back of his head. Witnesses report he looked as though he had gone blank and then collapsed. He cannot recall the event. He reports significant headache localized to the occipital area. Patient admits some dizziness when he leans forward. He does not take any blood thinners. Patient takes medication for hypothyroidism, depression, anxiety, and sleep. CBC/BMP: 05/02/16 0327 05/02/16 0327 Significant Findings Laboratory Tests Test 05/01/16 05/02/16 05/02/16 18:58 03:27 10:28 White Blood Count 15.6 TH/MM3 (4.0-11.0) Eosinophils (%) (Auto) 4.3 % (0.0-4.0) 4.6 % (0.0-4.0) Neutrophils # (Auto) 10.9 TH/MM3 (1.8-7.7) Eosinophils # (Auto) 0.7 TH/MM3 (0-0.4) Potassium Level 3.3 MEQ/L (3.5-5.1) Blood Urea Nitrogen 5 MG/DL (7-18) 6 MG/DL (7-18) Estimat Glomerular Filtration 58 ML/MIN (>89) 69 ML/MIN (>89) Rate Troponin I LESS THAN 0.02 NG/ML (0.02-0.05) Total Protein 8.4 GM/DL (6.4-8.2) Calcium Level 8.2 MG/DL (8.5-10.1) Aspartate Amino Transf 14 U/L (15-37) (AST/SGOT) Albumin 3.3 GM/DL (3.4-5.0) C-Reactive Protein 0.86 MG/DL (0.00-0.30) PE at Discharge Alert, O X 3. M/S grossly intact. Speech clear. Hospital Course 6 year-old male with mild dementia and stroke about 30 years ago without deficits presents to the emergency room for evaluation of syncopal episode. Patient was at [facility] when he fell backwards and struck the back of his head. Witnesses report he looked as though he had gone blank and then collapsed. He cannot recall the event. He reports significant headache localized to the occipital area. Patient admits some dizziness when he leans forward. He does not take any blood thinners. Patient takes medication for hypothyroidism, depression, anxiety, and sleep. 05/02: Remains asymptomatic. For CTA head today. Pt Condition on Discharge: Good Discharge Disposition: Discharge Home Discharge Instructions Additional Information Head CT in one week. Follow-up appointment with neurosurgery after 1 week. Hamzah Ruiz MD May 03, 2016 08:58
--- NOTE | 2016-05-03 09:04 | HHI.CCPN ---
Subjective Remarks/Hospital Course 6 year-old male with mild dementia and stroke about 30 years ago without deficits presents to the emergency room for evaluation of syncopal episode. Patient was at [facility] when he fell backwards and struck the back of his head. Witnesses report he looked as though he had gone blank and then collapsed. He cannot recall the event. He reports significant headache localized to the occipital area. Patient admits some dizziness when he leans forward. He does not take any blood thinners. Patient takes medication for hypothyroidism, depression, anxiety, and sleep. 05/02: Remains asymptomatic. For CTA head today. 05/03: Head MRA normal. Objective Vital Signs Date Time Temp Pulse Resp B/P Pulse Ox O2 Delivery O2 Flow Rate FiO2 05/03/16 06:00 71 05/03/16 04:00 98.9 21 115/75 93 05/01/16 23:16 Room Air Intake and Output 05/02/16 05/02/16 05/03/16 08:00 16:00 00:00 Intake Total 616 ml 715 ml 336 ml Output Total 400 ml 400 ml 475 ml Balance 216 ml 315 ml -139 ml Result Diagram: 05/02/16 0327 05/02/16 0327 Imaging Last [address] 05/01/161909 Signed Impressions: Service Date/Time: April 19:43 - CONCLUSION: 1. Focal acute subarachnoid or subdural blood versus venous sinus thrombosis. Please see above. MRV without contrast and MRI with and without contrast of the brain recommended. 2. Chronic-appearing sinus disease. Russel Lopez MD Objective Remarks Last [address] 05/01/161909 Signed Impressions: Service Date/Time: April 19:43 - CONCLUSION: 1. Focal acute subarachnoid or subdural blood versus venous sinus thrombosis. Please see above. MRV without contrast and MRI with and without contrast of the brain recommended. 2. Chronic-appearing sinus disease. Russel Lopez MD PE: Neuro: O X 3, alert, M/S grossly intact. Lungs: Clear, no wheezes or crackles. Heart: RRR, no JVD. Extremities; Warm, well perfused. Procedures MRA - normal. CT Head - Small post SDH A/P Problem List: (1) Hypertension ICD Code: I10 Status: Acute (2) COPD (chronic obstructive pulmonary disease) ICD Code: J44.9 Status: Acute (3) Intracranial bleeding ICD Code: I62.9 Status: Acute (4) Depression ICD Code: F32.9 Status: Acute (5) Hypothyroid ICD Code: E03.9 Status: Acute Assessment and Plan Intracranial Hemorrhage - admit to ICU - neurochecks Q1H - MRI/MRV to r/o aneurysm, venous sinus thrombosis - no NSGY indicated ' - no seizure prophylaxis indicated per location - Neurology evaluation -MRA normal HTN - goal SBT < 150 - Hydralazine PRN Hypothyroid - Levothyroxine Depression - Mirtazapine - Welbutrine - Trazodone Nutrition - NPO until images completed DVT/GI prophylaxis - TEDs/SCDs/ Pepcid Overall: Neuro status normal aside from emotional lability. Needs Head CT after 1 week. F/U with NS. Problem Qualifiers (1) Hypertension: Qualified Code: I10 - Essential hypertension (2) Depression: (3) Hypothyroid: Qualified Code: E03.9 - Acquired hypothyroidism Hamzah Ruiz MD May 03, 2016 09:04
--- NOTE | 2016-05-03 09:42 | HHI.NSPN ---
Subjective History 56 yr old day 2 after fall, small tentorial SDH, now alert with no dizziness and no gait abnormality. EEG and MRA were negative. Vitals . Vital Signs Date Time Temp Pulse Resp B/P Pulse Ox O2 Delivery O2 Flow Rate FiO2 05/03/16 08:00 98.5 56 16 130/80 97 05/03/16 08:00 56 05/03/16 06:00 71 05/03/16 04:00 68 05/03/16 04:00 98.9 71 21 115/75 93 05/03/16 02:00 65 05/03/16 00:00 69 05/03/16 00:00 97.9 62 16 112/75 94 05/02/16 22:00 69 05/02/16 21:26 21 05/02/16 20:00 67 05/02/16 20:00 98.2 73 21 123/74 94 05/02/16 18:00 68 05/02/16 16:00 66 05/02/16 16:00 98.3 66 16 107/79 94 05/02/16 14:00 85 05/02/16 12:00 74 05/02/16 12:00 98.5 74 17 141/91 95 05/02/16 10:00 75 05/02/16 05/02/16 05/03/16 15:00 23:00 07:00 Intake Total 715 ml 336 ml 400 ml Output Total 400 ml 475 ml Balance 315 ml -139 ml 400 ml Physical Exam Head Head: Atraumatic Eyes Eyes: Pupils Equal Neuro Mental Status: Awake, Alert, Oriented x 3 (has beseline dementia) Pupils: Reactive Bilaterally Nohemi Coma Scale Best Eye Openin - Spontaneous Best Verbal: 5 - Oriented Best Motor: 6 - Obeys Gastrointestinal Gastrointestinal: Soft Musculoskeletal Musculoskeletal: Moves all extrem with 5/5 strength (No dysmetria to FTN and heel to croft) Extremities Upper Extremities Deltoid Bicep Tricep HI W. Ext Right Left Lower Extremeties Ilio Quad Plantar Dorsi EHL Right Left Objective Labs Last Impressions Head Magnetic Resonance Angiography 05/02/16 0000 Signed Impressions: Service Date/Time: Monday, May 02, 2016 11:47 - CONCLUSION: Normal MRA. No evidence of stenotic or occlusive disease, aneurysm, vascular malformations or vasculopathy. Juanpablo Brooks MD Head CT 05/01/16 1910 Signed Impressions: Service Date/Time: April 19:43 - CONCLUSION: 1. Focal acute subarachnoid or subdural blood versus venous sinus thrombosis. Please see above. MRV without contrast and MRI with and without contrast of the brain recommended. 2. Chronic-appearing sinus disease. Russel Lopez MD Head/Brain Mag Res Venography 05/01/16 0000 Signed Impressions: Service Date/Time: April 21:28 - CONCLUSION: No venous sinus thrombosis or other acute abnormality. The confluence of the sagittal and right transverse sinuses is developmentally prominent. Russel Lopez MD Brain MRI 05/01/16 0000 Signed Impressions: Service Date/Time: April 21:28 - CONCLUSION: 1. No acute intracranial abnormality demonstrated. 2. Chronic, moderate severity and primarily subcortical white matter changes, nonspecific. Russel Lopez MD Laboratory Tests Test 05/02/16 10:28 Hemoglobin A1c 5.4 % C-Reactive Protein 0.86 MG/DL Vitamin B12 Level 956 PG/ML Thyroid Stimulating Hormone 0.764 uIU/ML 3rd Gen Assessment & Plan Diagnosis: (1) Subarachnoid hemorrhage following injury with loss of consciousness of 30 minutes or less Plan: Syncope work up shows no neurologic problems except for the tentorial acute hemorrhage from the fall. He has no headaches and can be discharged with family with follow up with neurosurgery in 1 week from the [facility]. Critical Care Time (minutes): 10 Pradeep May May 03, 2016 09:42
== END 2016-05-03 09:38 | disposition home or self-care (01) | DRG 87 ==
LOC: NEPC 17:51 → NEDA 20:27 → N03B 23:37
PROVIDERS: ADMIT Internal Medicine Critical Care Medicine; ATTEND Internal Medicine Critical Care Medicine
DX: S06.5X0A Traumatic subdural hemorrhage without loss of consciousness, initial encounter (principal); F03.90 Unspecified dementia, unspecified severity, without behavioral disturbance, psychotic disturbance, mood disturbance, and anxiety; R55 Syncope and collapse; W18.30XA Fall on same level, unspecified, initial encounter; Y92.512 Supermarket, store or market as the place of occurrence of the external cause; J44.9 Chronic obstructive pulmonary disease, unspecified; I10 Essential (primary) hypertension; Z86.73 Personal history of transient ischemic attack (TIA), and cerebral infarction without residual deficits; F32.9 Major depressive disorder, single episode, unspecified; F41.9 Anxiety disorder, unspecified; E03.9 Hypothyroidism, unspecified; F17.210 Nicotine dependence, cigarettes, uncomplicated; M19.90 Unspecified osteoarthritis, unspecified site
CPT/HCPCS: 70450; 70544; 70546; 70553; 80053; 82550; 82552; 82607; 83036; 83735; 84100; 84443; 84484; 85025; 85652; 85730; 86140; 87641; 93005; 95819; A9579; J7030

== ENCOUNTER 2016-05-12 14:07 | Emergency (ER) | payer MEDICARE, MEDICAID ==
[~2016-05-12] VITALS: Ht 177.8 cm; Wt 85.0 kg
[~2016-05-12 14:07] MED LIST changes: -ARIC5TAB PO; +BUPR100T4 PO; +CLON1TAB PO; +LEVO50TA4 PO; -LEVO50TA51 PO; -LISI-360 PO; -METO25 PO; +MIRT30TA PO; -MIRTA15 PO; -PERC5TAB12 PO; -PRIM50TA PO; -RISP2TAB2 PO; +TRAZ150T75 PO; -TRAZ300T2 PO; -VENL150T14 PO
[2016-05-12 14:26] VITALS: BP 123/76; PULSE 78; RESP 14; TEMP 97.7; O2SAT 98
[2016-05-12 14:30] VITALS: BP 123/76; PULSE 75; RESP 14; O2SAT 98
--- NOTE | 2016-05-12 14:30 | PD ---
HPI Chief Complaint: psychiatric evaluation Time Seen by Provider: 14:29 Travel History International Travel<30 days: No Contact w/Intl Traveler<30days: No History of Present Illness HPI Patient brought in by police under Jones act for suicidal ideations. Patient states that he has dementia and is not certain why he is here. Patient denies any homicidal ideations. Patient states he does have thoughts of hurting himself from time to time and his plan was be to use a gun. Patient denies any chest pain, headache, shortness of breath, nausea, vomiting, or abdominal pain. PFSH Past Medical History Arthritis: Yes Asthma: No Autoimmune Disease: No Anxiety: Yes Depression: Yes Heart Rhythm Problems: No Cancer: No Cardiac Catheterization: Yes (2008) Cardiovascular Problems: Yes High Cholesterol: No Chemotherapy: No Chest Pain: No Congestive Heart Failure: No COPD: Yes Cerebrovascular Accident: Yes (NO DEFICIT) Coronary Artery Disease: Yes Dementia: Yes (SHORT TERM) Diabetes: No Diminished Hearing: No Endocrine: No Gastrointestinal Disorders: No GERD: No Genitourinary: No Headaches: Yes Hepatitis: No Hiatal Hernia: No Immune Disorder: No Implanted Vascular Access Dvce: No Kidney Stones: No Musculoskeletal: Yes Neurologic: Yes Psychiatric: Yes (DEPRESSION) Reproductive: No Respiratory: Yes Immunizations Current: Yes Migraines: No Radiation Therapy: No Renal Failure: No Seizures: No Sleep Apnea: No Thyroid Disease: Yes PNEUMOCCOCAL Vaccine (Year): 2 Past Surgical History Abdominal Surgery: Yes (ABDOMINAL HERNIA REPAIR) AICD: No Arteriovenous Shunt: No Ear Surgery: No Endocrine Surgery: No Eye Surgery: No Genitourinary Surgery: No Gynecologic Surgery: No Insulin Pump: No Joint Replacement: No Neurologic Surgery: No Oral Surgery: No Pacemaker: No Thoracic Surgery: No Other Surgery: Yes (CYST REMOVAL) Social History Alcohol Use: No (SOBER 4 YEARS) Tobacco Use: Yes (04/14 PPD) Substance Use: No Allergies-Medications (Allergen,Severity, Reaction): Coded Allergies: No Known Allergies (Verified , 05/12/16) Reported Meds & Prescriptions Reported Meds & Active Scripts Active Reported Trazodone (Trazodone HCl) 150 Mg Tab 150 Mg PO HS Mirtazapine 30 Mg Tab 30 Mg PO HS Clonazepam 1 Mg Tab 1 Mg PO TID Bupropion HCl 100 Mg Tab 100 Mg PO HS Levothyroxine (Levothyroxine Sodium) 50 Mcg Tab 50 Mcg PO DAILY Review of Systems Except as stated in HPI: all other systems reviewed are Neg Physical Exam Narrative GENERAL: Well-developed, overly nourished, in no acute distress, and non-ill appearing. SKIN: Warm and dry. HEAD: Atraumatic. Normocephalic. EYES: Pupils equal and round. EOMI. No scleral icterus. No injection or drainage. ENT: No nasal bleeding or discharge. Mucous membranes pink and moist. NECK: Trachea midline. Supple. No nuclear rigidity. CARDIOVASCULAR: Regular rate and rhythm. No murmur appreciated. RESPIRATORY: No accessory muscle use. No respiratory distress. Clear to auscultation. Breath sounds equal bilaterally. GASTROINTESTINAL: Abdomen soft, non-tender, nondistended. Hepatic and splenic margins not palpable. No pulsatile mass. MUSCULOSKELETAL: No obvious deformities. No clubbing. No cyanosis. No edema. Full range of motion. NEUROLOGICAL: Awake and alert. No obvious cranial nerve deficits. Motor grossly within normal limits. Normal speech. PSYCHIATRIC: Appropriate mood and affect. Data Data Last Documented VS Vital Signs Date Time Temp Pulse Resp B/P Pulse Ox O2 Delivery O2 Flow Rate FiO2 05/12/16 14:30 75 14 123/76 98 Room Air 05/12/16 14:26 97.7 Orders Complete Blood Count With Diff (05/12/16 14:25) Comprehensive Metabolic Panel (05/12/16 14:25) Urinalysis - C+S If Indicated (05/12/16 14:25) Drug Screen, Random Urine (05/12/16 14:25) Alcohol (Ethanol) (05/12/16 14:25) Salicylates (Aspirin) (05/12/16 14:25) Tylenol (Acetaminophen) (05/12/16 14:25) Psych Screen (05/12/16 14:25) Labs Laboratory Tests Test 05/12/16 14:45 White Blood Count 12.7 TH/MM3 Red Blood Count 5.60 MIL/MM3 Hemoglobin 16.2 GM/DL Hematocrit 48.1 % Mean Corpuscular Volume 85.9 FL Mean Corpuscular Hemoglobin 28.9 PG Mean Corpuscular Hemoglobin 33.6 % Concent Red Cell Distribution Width 13.8 % Platelet Count 190 TH/MM3 Mean Platelet Volume 8.4 FL Neutrophils (%) (Auto) 71.3 % Lymphocytes (%) (Auto) 21.9 % Monocytes (%) (Auto) 3.1 % Eosinophils (%) (Auto) 2.5 % Basophils (%) (Auto) 1.2 % Neutrophils # (Auto) 9.1 TH/MM3 Lymphocytes # (Auto) 2.8 TH/MM3 Monocytes # (Auto) 0.4 TH/MM3 Eosinophils # (Auto) 0.3 TH/MM3 Basophils # (Auto) 0.2 TH/MM3 CBC Comment DIFF FINAL Differential Comment Urine Color YELLOW Urine Turbidity CLEAR Urine pH 5.0 Urine Specific [place] 1.011 Urine Protein NEG mg/dL Urine Glucose (UA) NEG mg/dL Urine Ketones NEG mg/dL Urine Occult Blood NEG Urine Nitrite NEG Urine Bilirubin NEG Urine Urobilinogen LESS THAN 2.0 MG/DL Urine Leukocyte Esterase NEG Urine RBC LESS THAN 1 /hpf Urine WBC LESS THAN 1 /hpf Urine Mucus FEW /lpf Microscopic Urinalysis Comment CULT NOT INDICATED Sodium Level 138 MEQ/L Potassium Level 3.9 MEQ/L Chloride Level 106 MEQ/L Carbon Dioxide Level 24.1 MEQ/L Anion Gap 8 MEQ/L Blood Urea Nitrogen 10 MG/DL Creatinine 1.12 MG/DL Estimat Glomerular Filtration 67 ML/MIN Rate Random Glucose 100 MG/DL Calcium Level 8.7 MG/DL Total Bilirubin 0.2 MG/DL Aspartate Amino Transf 16 U/L (AST/SGOT) Alanine Aminotransferase 20 U/L (ALT/SGPT) Alkaline Phosphatase 65 U/L Total Protein 7.8 GM/DL Albumin 3.7 GM/DL Salicylates Level 4.1 MG/DL Urine Opiates Screen NEG Acetaminophen Level LESS THAN 2.0 MCG/ML Urine Barbiturates Screen NEG Urine Amphetamines Screen NEG Urine Benzodiazepines Screen NEG Urine Cocaine Screen NEG Urine Cannabinoids Screen POS Ethyl Alcohol Level 209 MG/DL [facility] Medical Decision Making Medical Screen Exam Complete: Yes Emergency Medical Condition: Yes Differential Diagnosis Homicidal, suicidal, depression, drug induced psychosis, alcohol induced psychosis, other Narrative Course Patient was seen and examined. Labs were obtained and reviewed. Discussed patient with Dr. Nobles, who is in agreement with plan of care and disposition. Patient medically cleared for further treatment and evaluation by psych. Final disposition per psych. Diagnosis Primary Impression: Alcohol intoxication Qualified Code: F10.120 - Alcohol intoxication, uncomplicated Condition: Stable Clayton Rojas May 12, 2016 14:30
[2016-05-12 15:15] LABS: AUTOMATED NEUTROPHIL # 9.1 TH/MM3 (1.8-7.7); BASOPHIL # 0.2 TH/MM3 (0-0.2); BASOPHIL % 1.2 % (0.0-2.0); EOSINOPHIL # 0.3 TH/MM3 (0-0.4); EOSINOPHIL % 2.5 % (0.0-4.0); HEMATOCRIT 48.1 % (39.0-51.0); HEMO FLAGS DIFF FINAL; LYMPH % 21.9 % (9.0-44.0); LYMPHOCYTE # 2.8 TH/MM3 (1.0-4.8); MEAN CELL VOLUME 85.9 FL (80.0-100.0); MEAN CORPUSCULAR HEMOGLOBIN 28.9 PG (27.0-34.0); MEAN CORPUSCULAR HGB CONC 33.6 % (32.0-36.0); MONO % 3.1 % (0.0-8.0); NEUT % 71.3 % (16.0-70.0); PLATELET COUNT 190 TH/MM3 (150-450); RED CELL DISTRIBUTION WIDTH 13.8 % (11.6-17.2); WHITE BLOOD COUNT 12.7 TH/MM3 (4.0-11.0)
[2016-05-12 15:19] LABS: BLOOD, URINE NEG (NEG); COMMENT (UR) CULT NOT INDICATED; CULTURE IF INDICATED CULT NOT INDICATED; GLUCOSE,URINE NEG (NEG); KETONE, URINE NEG (NEG); MUCUS URINE FEW /lpf (OCC); NITRITE,URINE NEG (NEG); URINE COLOR YELLOW (YELLW/STRAW)
[2016-05-12 15:22] LABS: AMPHETAMINE, URINE NEG (NEG); BARBITURATES, URINE NEG (NEG); COCAINE, URINE NEG (NEG)
[2016-05-12 15:44] LABS: ALT (GPT) 20 U/L (12-78); ANION GAP 8 MEQ/L (5-15); AST (GOT) 16 U/L (15-37); BICARBONATE 24.1 MEQ/L (21.0-32.0); BLOOD UREA NITROGEN 10 MG/DL (7-18); CHLORIDE 106 MEQ/L (98-107); GLOMERULAR FILTRATION RATE 67 ML/MIN (>89); POTASSIUM 3.9 MEQ/L (3.5-5.1); SODIUM (NA) 138 MEQ/L (136-145)
[2016-05-12 15:45] LABS: ALKALINE PHOSPHATASE 65 U/L (45-117); TOTAL BILIRUBIN ADULT 0.2 MG/DL (0.2-1.0)
[2016-05-12 15:48] LABS: ACETAMINOPHEN LESS THAN 2.0 MCG/ML (10.0-30.0)
[2016-05-12 20:05] VITALS: BP 100/57; PULSE 18; PULSE 70; RESP 18; O2SAT 93
[2016-05-12 22:00] VITALS: BP 105/66; PULSE 67; RESP 18; O2SAT 97
[2016-05-13 02:12] VITALS: BP 98/65; PULSE 63; RESP 16; O2SAT 99
[2016-05-13 06:44] VITALS: BP 122/76; PULSE 58; RESP 18; TEMP 97.4; O2SAT 98
--- NOTE | 2016-05-13 11:42 | PD ---
History of Present Illness Chief Complaint: Psychiatric Symptoms Time Seen by Provider: 11:05 Travel History International Travel<30 Days: No Contact w/Intl Traveler<30days: No Known affected area: No Legal Status Legal Status: Jones Act Jones Act Signed By: Karely Wheeler History of Present Illness: History of Present Illness 56 year old male with history of alcohol abuse and substance induced mood disorder and dementia.who was brought in by police under Jones act for suicidal ideations. As per the report " Juaquin was making suicidal statements. Juaquin claims he was going to take all of his medications at one time or cut his wrist because he did not want to live anymore". Upon admission patient presents with BAL of209 and positive toxicology for cannabinoids. He was monitored in [facility] and was allowed to sober up. This morning he is clinically sober. He does not exhibit any symptoms of withdrawal. He is alert and oriented x 4 . He knows the current president but previous president " Adiel". His speech is clear and he is able to answer questions. He has no recollection of any statements he made alleging he was going to kill himself. He goes on to say that he has brooklynn dx w dementia approximately 2 years ago and has difficulty remembering things he may have said or done. He states that he is not a violent person and is requesting to be discharged. He denies any hallucinations, delusions or paranoia. Denies any depression or anxiety symptoms. Currently no suicidal or homicidal ideation, intent or plan. In terms of previous contact he was last seen and evaluated by psychiatry in 2011. he had several visits that year and in all those visits he presented acutely intoxicated. The patient reports that he does not drink anymore and denies remembering that he drank ETOH or consumed marijuana. Telephone call to patient's at [phone] to obtain collateral information. . She reports he has been sober x 4 years. Was dx w dementia x 2 years and is in tx w a neurologist. She reports that yesterday he took a nap and upon awakening he appeared more confused and made statements that indicated he wanted to . She states " He was saying just kill me . I don't want to live like this anymore". She denies any knowledge of him drinking alcohol and report that they have been sober x 4 years. He is no longer attending AA since he was forgetting content of meetings. She is aware that they keep vodka in the home as " my mother likes to have a cocktail every day". She has no knowledge of how he was able to purchase marijuana as he does not go out by himself. She has no concerns for his safety and will pick him up if he were to be discharged. She has been instructed to maintain alcohol in a safe place so as to prevent him from having access. . PFSH Past Medical History Arthritis: Yes Asthma: No Autoimmune Disease: No Anxiety: Yes Depression: Yes Heart Rhythm Problems: No Cancer: No Cardiac Catheterization: Yes (2008) Cardiovascular Problems: Yes High Cholesterol: No Chemotherapy: No Chest Pain: No Congestive Heart Failure: No COPD: Yes Cerebrovascular Accident: Yes (NO DEFICIT) Coronary Artery Disease: Yes Dementia: Yes (SHORT TERM) Diabetes: No Diminished Hearing: No Endocrine: No Gastrointestinal Disorders: No GERD: No Genitourinary: No Headaches: Yes Hepatitis: No Hiatal Hernia: No Immune Disorder: No Implanted Vascular Access Dvce: No Kidney Stones: No Medical other: Yes (ARTHRITIS, STROKE) Musculoskeletal: Yes Neurologic: Yes Psychiatric: Yes (DEPRESSION) Reproductive: No Respiratory: Yes Immunizations Current: Yes Migraines: No Radiation Therapy: No Renal Failure: No Seizures: No Sleep Apnea: No Thyroid Disease: Yes Influenza Vaccination: No PNEUMOCCOCAL Vaccine (Year): 2 Past Surgical History Abdominal Surgery: Yes (ABDOMINAL HERNIA REPAIR) AICD: No Arteriovenous Shunt: No Cardiac Surgery: Yes (CARDIAC CATHERIZTION) Ear Surgery: No Endocrine Surgery: No Eye Surgery: No Genitourinary Surgery: No Gynecologic Surgery: No Insulin Pump: No Joint Replacement: No Neurologic Surgery: No Oral Surgery: No Pacemaker: No Thoracic Surgery: No Other Surgery: Yes (CYST REMOVAL) Psychiatric History Psychiatric History Hx Psychiatric Treatment: PATIENT HAS A HISTORY OF DEPRESSION. PATIENT WAS LAST ADMITTED TO [facility] ON 07/30/11. History of Inpatient Treatment: Yes Guns or firearms in home: No Social History Born in [place]. In [place] x 35 years. x28 years. 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 Lives with his and his mother in law. Hx Alcohol Use: Yes (SOBER 4 YEARS. Current BAL of 209) Hx Tobacco Use: Yes (1 2 PPD) Hx Substance Use: Yes (ALCOHOL) Substance Use Type: Alcohol, Marijuana Hx of Substance Use Treatment: Yes (AA) Family Psychiatric History negative Allergies-Medications (Allergen,Severity, Reaction): Coded Allergies: No Known Allergies (Verified , 05/12/16) Reported Meds & Prescriptions Reported Meds & Active Scripts Active Reported Trazodone (Trazodone HCl) 150 Mg Tab 150 Mg PO HS Mirtazapine 30 Mg Tab 30 Mg PO HS Clonazepam 1 Mg Tab 1 Mg PO TID Bupropion HCl 100 Mg Tab 100 Mg PO HS Levothyroxine (Levothyroxine Sodium) 50 Mcg Tab 50 Mcg PO DAILY Review of Systems Except as stated in HPI: all other systems reviewed are Neg Psychiatric: COMPLAINS OF: Suicidal Ideation Exam Alert: Yes [place]: Person (ox4) Mood: Anxious Affect: Euthymic Speech: Clear, Logical Eye Contact: Normal Memory Intact: Comment (impaired for recent) Hallucinations: Other (negative) Delusions: No Suicidal: Ideation (deneis any) Homicidal: Ideation (denies any) Insight/Judgement poor. poor MDM Medical Decision Making Medical Record Reviewed: Yes Assessment/Plan 56 year old w history of alcohol dependence with substance induced mood disorder and cognitive impairment who is under a BA for alleged suicidal ideation. Patient intoxicated at the time of the BA. Patient at this time is clinically sober and has no recollection of having verbalized any intent or plan to harm himself. He denies any current suicidal ideation,intent or plan. At this time does not meet BA criteria. [facility] BA Orders Complete Blood Count With Diff (05/12/16 14:25) Comprehensive Metabolic Panel (05/12/16 14:25) Urinalysis - C+S If Indicated (05/12/16 14:25) Drug Screen, Random Urine (05/12/16 14:25) Alcohol (Ethanol) (05/12/16 14:25) Salicylates (Aspirin) (05/12/16 14:25) Tylenol (Acetaminophen) (05/12/16 14:25) Psych Screen (05/12/16 14:25) Diet Regular Basic (05/13/16 Breakfast) Diet Regular Basic (05/13/16 Lunch) Results Vital Signs Date Time Temp Pulse Resp B/P Pulse Ox O2 Delivery O2 Flow Rate FiO2 05/13/16 06:44 97.4 58 18 122/76 98 Room Air 05/13/16 02:12 63 16 98/65 99 Room Air 05/12/16 22:00 67 18 105/66 97 Room Air 05/12/16 20:05 70 18 100/57 93 05/12/16 14:30 75 14 123/76 98 Room Air 05/12/16 14:26 97.7 78 14 123/76 98 Laboratory Tests Test 05/12/16 14:45 White Blood Count 12.7 Red Blood Count 5.60 Hemoglobin 16.2 Hematocrit 48.1 Mean Corpuscular Volume 85.9 Mean Corpuscular Hemoglobin 28.9 Mean Corpuscular Hemoglobin 33.6 Concent Red Cell Distribution Width 13.8 Platelet Count 190 Mean Platelet Volume 8.4 Neutrophils (%) (Auto) 71.3 Lymphocytes (%) (Auto) 21.9 Monocytes (%) (Auto) 3.1 Eosinophils (%) (Auto) 2.5 Basophils (%) (Auto) 1.2 Neutrophils # (Auto) 9.1 Lymphocytes # (Auto) 2.8 Monocytes # (Auto) 0.4 Eosinophils # (Auto) 0.3 Basophils # (Auto) 0.2 CBC Comment DIFF FINAL Differential Comment Urine Color YELLOW Urine Turbidity CLEAR Urine pH 5.0 Urine Specific [place] 1.011 Urine Protein NEG Urine Glucose (UA) NEG Urine Ketones NEG Urine Occult Blood NEG Urine Nitrite NEG Urine Bilirubin NEG Urine Urobilinogen LESS THAN 2.0 Urine Leukocyte Esterase NEG Urine RBC LESS THAN 1 Urine WBC LESS THAN 1 Urine Mucus FEW Microscopic Urinalysis Comment CULT NOT INDICATED Sodium Level 138 Potassium Level 3.9 Chloride Level 106 Carbon Dioxide Level 24.1 Anion Gap 8 Blood Urea Nitrogen 10 Creatinine 1.12 Estimat Glomerular Filtration 67 Rate Random Glucose 100 Calcium Level 8.7 Total Bilirubin 0.2 Aspartate Amino Transf 16 (AST/SGOT) Alanine Aminotransferase 20 (ALT/SGPT) Alkaline Phosphatase 65 Total Protein 7.8 Albumin 3.7 Salicylates Level 4.1 Urine Opiates Screen NEG Acetaminophen Level LESS THAN 2.0 Urine Barbiturates Screen NEG Urine Amphetamines Screen NEG Urine Benzodiazepines Screen NEG Urine Cocaine Screen NEG Urine Cannabinoids Screen POS Ethyl Alcohol Level 209 Diagnosis Primary Impression: Alcohol intoxication Psychiatrically Cleared: Yes Med/ Other Pt Specific Info: No Change to Meds Disposition: 01 DISCHARGE HOME Condition: Stable Problem Qualifiers Primary Impression: Alcohol intoxication Qualified Code: F10.120 - Alcohol intoxication, uncomplicated Flores Searscristino VELA May 13, 2016 11:42
[2016-05-13 12:03] VITALS: BP 122/76; PULSE 58; RESP 18; O2SAT 98
== END 2016-05-13 15:04 | disposition home or self-care (01) ==
LOC: NEPE 14:07 → NEPJ 05-13 15:04
DX: F10.120 Alcohol abuse with intoxication, uncomplicated (principal); F03.90 Unspecified dementia, unspecified severity, without behavioral disturbance, psychotic disturbance, mood disturbance, and anxiety; R45.851 Suicidal ideations; F12.10 Cannabis abuse, uncomplicated; M19.90 Unspecified osteoarthritis, unspecified site; F41.8 Other specified anxiety disorders; J44.9 Chronic obstructive pulmonary disease, unspecified; F17.210 Nicotine dependence, cigarettes, uncomplicated; Y90.8 Blood alcohol level of 240 mg/100 ml or more
CPT/HCPCS: 80053; 80307; 80320; 80329; 81001; 85025; 99285; G0480